=== PATIENT | female | born 1975 | race Caucasian/White ===

== ENCOUNTER → 2016-12-22 | Outpatient (CLI) | payer OTHER ==
[~2016-12-22] MED LIST: ALPRAZOLAM PO; AMBIEN10 MG PO; BIRTH CONTROL PILL PO; DURAGESIC25 MCG EXT; HYDROCODONE-APA1 T33 PO; LORTAB 10/500 T1 TAB PO; ORTHO TRI-7 DAYS X PO; PERCOCET PO
--- NOTE | ~2016-12-22 | MR112 ---
[facility] A Service of [facility] & [facility] RADIOLOGY TEXT RESULTS PATIENT: MARIUSZ PRADHAN LOCATION: [facility] : 71 UNIT #: [id number] AGE: [address]: Jose Manuel Aranda MD SEX: F ORDER DR: [id number] [facility] [address] [place], [place] [address] [id number] O MR#: [id number] #: [id number] NAME: MARIUSZ PRADHAN : 1975 SEX: F STUDY DATE/TIME: 12/22/2016 8:18 UNIT: [facility] ROOM: STUDY DESCRIPTION: MR Lumbar WWo Contrast Attending Physician: Jose Manuel Aranda M.D. Referring Physician: Jose Manuel Aranda M.D. Ordering Physician: Physician Non-Staff Primary Care Physician: Shayy Romero M.D. MRI CENTER REPORT This report is preliminary unless electronic signature is present. EXAM Lumbar spine MRI without and with contrast. HISTORY Increased low back pain, recent diagnosis of breast cancer, chronic low back pain is increasing recently, evaluate degenerative disc disease. Chronic pain has been for 2 years. Patient injured back to a year ago bending over also. Also complains of bilateral leg pain and numbness off and on. Breast cancer diagnosis of 2013 treated with chemotherapy in 2014. MRI of the lumbar spine was performed prior to and following intravenous administration 17 mL of MultiHance. Plain film comparison is from 09/09/2014. FINDINGS There is normal sagittal alignment. Spine is numbered assuming that there is a hypoplastic S1-2 intervertebral disc. Using this numbering, lowest axial images obtained at L5-S1. Bone marrow signal intensity is normal. There is mild disc desiccation and loss of disc height at L3-4. Conus medullaris terminates L2 and is normal. Following contrast administration, there is no pathologic intracanalicular enhancement. There is nothing to suggest osseous metastatic disease. L1-2, mild bilateral facet hypertrophy. No canal or foraminal impingement. At L2-3, mild bilateral facet hypertrophy. No canal or foraminal impingement. At L3-4, mild bilateral facet degenerative change mild ligamentum flavum thickening. Concentric disc bulge broad-based posterior protrusion extending into inferior foramina. There is mild central canal stenosis. Mild mass effect on the [id number]-[id number]-dnem-right lateral recess. More STS. [facility] A Service of [facility] & [facility] RADIOLOGY TEXT RESULTS PATIENT: MARIUSZ PRADHAN [facility] UNIT #: [id number] AGE: [address]: Jose Manuel Aranda MD SEX: F ORDER DR: focal disc protrusion to the left side posterolaterally with mild left greater than right inferior foraminal narrowing. At L4-5, mild facet degenerative change bilaterally. Minor broad-based posterior disc bulge. Mild effacement of the anterior thecal sac and mass effect on the bilateral-lateral recesses. Mild left inferior foraminal narrowing. On the right side, there is a more focal right posterolateral small protrusion/extrusion impinging upon expected location of the right L4 root at the lateral aspect of the foramen. At L5-S1, mild bilateral facet degenerative change right greater than left, minor posterior disc bulge. No canal stenosis. Mild left inferior foraminal narrowing. IMPRESSION 1. Relatively mild lumbar degenerative changes detailed above. At L3-4 there is mild canal stenosis. Foraminal narrowing is detailed in the comment most prominent on the right side at L4-5 where there is a small right posterolateral protrusion/extrusion impinging upon expected location of the right L4 root lateral aspect foramen extending lateral to the foramen. 2. Nothing to suggest osseous metastatic disease. No pathologic intracanalicular enhancement. Dictated by... Brigid Whitehead M.D. THIS IS AN ELECTRONICALLY VERIFIED REPORT Brigid Whitehead M.D. at 12/23/2016 10:03 AM Onofre TD: 12/22/2016 22:43 JOB #: [id number] MRI CENTER REPORT Page 1 of 1 COPY
== END | disposition home or self-care (01) ==
LOC: CMRI 12-14 08:00
DX: M54.5 Low back pain (principal); G89.29 Other chronic pain; M47.896 Other spondylosis, lumbar region; M48.06 Spinal stenosis, lumbar region; M51.26 Other intervertebral disc displacement, lumbar region
CPT/HCPCS: 72158; A9577